=== PATIENT | female | born 1950 | race Caucasian/White ===

== ENCOUNTER 2016-10-02 11:57 | Emergency (ER) | payer OTHER, MEDICARE ==
[~2016-10-02] VITALS: Ht 170.2 cm; Wt 70.0 kg
[2016-10-02] MEDS ORDERED: METOPROL TAR25 MG PO (12:09)
[2016-10-02] MEDS ORDERED: LORTAB 10-325 M1 TAB PO (15:19)
[2016-10-02 15:34] VITALS: BP 150/67
== END 2016-10-02 17:04 | disposition home or self-care (01) | DRG 552 ==
LOC: ED 11:57
PROC: 0HQ0XZZ Repair Scalp Skin, External Approach (ICD-10-PCS; principal; 2016-10-02)
PROC: 0HQGXZZ Repair Left Hand Skin, External Approach (ICD-10-PCS; 2016-10-02)
PROC: 2W3CX1Z Immobilization of Right Lower Arm using Splint (ICD-10-PCS; 2016-10-02)
DX: S16.1XXA Strain of muscle, fascia and tendon at neck level, initial encounter (principal); S09.90XA Unspecified injury of head, initial encounter; S01.01XA Laceration without foreign body of scalp, initial encounter; S52.501A Unspecified fracture of the lower end of right radius, initial encounter for closed fracture; S52.601A Unspecified fracture of lower end of right ulna, initial encounter for closed fracture; S61.215A Laceration without foreign body of left ring finger without damage to nail, initial encounter; V44.6XXA Car passenger injured in collision with heavy transport vehicle or bus in traffic accident, initial encounter; W22.10XA Striking against or struck by unspecified automobile airbag, initial encounter; Y92.413 State road as the place of occurrence of the external cause; R94.31 Abnormal electrocardiogram [ECG] [EKG]